=== PATIENT | male | born 1945 | race Caucasian/White ===

== ENCOUNTER 2017-02-12 10:57 | Emergency (ER) | payer BC, MEDICARE ==
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
[2017-02-12] MEDS ORDERED: TORAdol 30 mg Injection IV ONE (12:31)
[2017-02-12] MEDS ORDERED: TORAdol 30 mg Injection ONE (12:31)
[2017-02-12 13:06] VITALS: BP 146/86; PULSE 78; O2SAT 98
== END 2017-02-12 13:15 | disposition home or self-care (01) ==
LOC: ED 10:57
DX: S29.019A Strain of muscle and tendon of unspecified wall of thorax, initial encounter (principal); S39.012A Strain of muscle, fascia and tendon of lower back, initial encounter; M54.2 Cervicalgia; M25.512 Pain in left shoulder; V43.52XA Car driver injured in collision with other type car in traffic accident, initial encounter
CPT/HCPCS: 36000; 71020; 72040; 72100; 72170; 96374; 99284; J1885

== ENCOUNTER 2020-07-12 09:37 | Day surgery (SDC) | payer OTHER, MEDICARE ==
[~2020-07-12 09:37] MED LIST: DIPRIVAN 200 MG/20 ML IV ONE; Ketamine HCl 50 MG/ML ONE
[2020-07-12] MEDS ORDERED: Sodium Chloride 0.9(Preservative Free) 10 ML IJ ONE (09:38)
[2020-07-12] MEDS ORDERED: Depo-Medrol 40 MG/ML IM ONE (09:38)
--- NOTE | 2020-07-12 11:51 | XRAY ---
44 seconds fluoroscopy time in surgery for right L3-L5 transforaminal LYNDA.
--- NOTE | 2020-07-12 11:51 | XRAY ---
Indication: Right L3-L5 transforaminal LYNDA. Intraoperative fluoroscopy was provided for 44 seconds. 4 digital spot images submitted for interpretation demonstrates posterior needle tips projecting over the expected right L3 and L4 nerve roots. Small amount of contrast injected for needle tip placement. Correlate with intraoperative findings/report.
[2020-07-12] MEDS ORDERED: Lactated Ringers 1,000 ML IV ONE (15:13)
== END 2020-07-12 11:15 | disposition home or self-care (01) ==
LOC: SDC-PAIN 09:37
PROVIDERS: ATTEND Psychiatry & Neurology Pain Medicine
DX: M54.16 Radiculopathy, lumbar region (principal); I10 Essential (primary) hypertension; Z79.899 Other long term (current) drug therapy
CPT/HCPCS: 64483; 64484; 72100; 77003; 99100; J1030; J2704; Q9966